=== PATIENT | female | born 1965 | race Caucasian/White ===

== ENCOUNTER 2019-06-05 10:35 | Emergency (ER) | payer OTHER ==
[2019-06-05 10:50] VITALS: BP 155/90; PULSE 84; RESP 18; TEMP 97.4
--- NOTE | 2019-06-05 12:05 | ED ---
Skin/Abscess/FB HPI - General Chief complaint: Skin/Abscess/Foreign Body Stated complaint: Wound issues Time Seen by Provider: 06/05/19 10:52 Source: family Mode of arrival: ambulatory Limitations: no limitations - History of Present Illness Initial comments: 53-year-old diabetic with history of chronic left lower leg wound presenting today for chief complaint of left lower extremity wound redness. Patient states that she has had a chronic wound for years per she states that she has been applying any lidocaine cream and has noticed as caused increasing redness and peeling skin around it. Patient was concerned it is infected presents emergency for further evaluation. Patient relates newly started prescription of Bactrim for this prescribed by her wound care clinic in 40. Remaining review of system negative patient denies fever chills night sweats pain and proportion she states it is burning. Denies flu like symptoms or leg swelling. - Related Data Previous Rx's Medication Instructions Recorded Clindamycin [Cleocin] 450 mg PO Q8H 7 Days #63 capsule 06/05/19 Allergies Allergy/AdvReac Type Severity Reaction Status Date / Time Cephalosporins Allergy Swelling Verified 06/05/19 10:50 Penicillins Allergy Swelling Verified 06/05/19 10:50 theophylline Allergy Swelling Verified 06/05/19 10:50 vancomycin Allergy Swelling Verified 06/05/19 10:50 Review of Systems ROS Statement: Those systems with pertinent positive or pertinent negative responses have been documented in the HPI. ROS Other: All systems not noted in ROS Statement are negative. Past Medical History Past Medical History: Asthma, Thyroid Disorder Additional Past Medical History / Comment(s): zachary's, mixed connective tissue disorder, overactive bladder History of Any Multi-Drug Resistant Organisms: MRSA Date of last positivie culture/infection: 2002 MDRO Source:: abdomen Past Surgical History: Section, Orthopedic Surgery Additional Past Surgical History / Comment(s): right knee surgery, dermoid removed from ovary Past Psychological History: No Psychological Hx Reported Smoking Status: Never smoker Past Alcohol Use History: None Reported Past Drug Use History: None Reported General Exam - General Exam Comments Initial Comments: General: The patient is awake and alert, in no distress, and does not appear acutely ill. Eye: +3 mm pupils are equal, round and reactive to light, extra-ocular movements are intact. No nystagmus. There is normal conjunctiva bilaterally. No signs of icterus. Ears, nose, mouth and throat: There are moist mucous membranes and no oral lesions. Neck: The neck is supple, there is no tenderness or JVD. Cardiovascular: There is a regular rate and rhythm. No murmur, rub or gallop is appreciated. Respiratory: Lungs are clear to auscultation, respirations are non-labored, breath sounds are equal. No wheezes, stridor, rales, or rhonchi. Musculoskeletal: Normal ROM, no tenderness. Strength 5/5. Sensation intact.Radial pulses equal bilaterally 2+. Neurological: A&O x 3. CN II-XII intact, There are no obvious motor or sensory deficits. Coordination appears grossly intact. Speech is normal. Skin: Skin is warm and dry and no rashes. Excoriated area of erythema of the left lower m[place] with granulation tissue present. No significant ulceration. Mild surrounding erythema no abscess or no drainage. Psychiatric: Cooperative, appropriate mood & affect, normal judgment. Limitations: no limitations Course Vital Signs 06/05/19 10:46 Temperature 97.4 F L Pulse Rate 84 Respiratory 18 Rate Blood Pressure 155/90 O2 Sat by Pulse 95 Oximetry Medical Decision Making - Medical Decision Making 53yo female presenting today for cc of wound evaluation. Patient started new lidoccaine cream and that is when she noticed increasing irrtation and redness. Patient has no constitutional symptoms. Patient appears well signs of acute distress afebrile upon arrival. The psychosis morsel related dermatitis from the irritation of lidocaine cream. Patient instructed to discontinue lidocaine cream. Patient given pain medicine emergency part. Patient Vibramycin any prior Dr. Felix. Patient be started on clindamycin for ddx of possible developing surrounding cellulitis, and given instruction to follow-up with primary care provider/wound care. Return parameters were discussed at length patient is discharged appearing well. Agreeable [facility] plan Disposition Clinical Impression: Contact dermatitis, Chronic wound of extremity Disposition: HOME SELF-CARE Condition: Good Instructions (If sedation given, give patient instructions): Contact Dermatitis (ED) Additional Instructions: Please use medication as discussed. Please follow-up with family doctor in the next week. Please monitor outline. Please return to emergency room if the symptoms increase or worsen or for any other concerns. Prescriptions: Clindamycin [Cleocin] 450 mg PO Q8H 7 Days #63 capsule Is patient prescribed a controlled substance at d/c from ED?: No Referrals: Nonstaff,Physician [Primary Care Provider] - 1-2 days Time of Disposition: 12:05
[2019-06-05] MEDS ORDERED: HYDROcodone/APAP 7.5-325MG 1 EACH TAB PO ONE (12:06)
== END 2019-06-05 12:22 | disposition home or self-care (01) ==
LOC: EC 10:35
DX: S81.802A Unspecified open wound, left lower leg, initial encounter (principal); L25.9 Unspecified contact dermatitis, unspecified cause; Z86.14 Personal history of Methicillin resistant Staphylococcus aureus infection; Z88.0 Allergy status to penicillin; Z88.1 Allergy status to other antibiotic agents; Z88.8 Allergy status to other drugs, medicaments and biological substances
CPT/HCPCS: 99283